=== PATIENT | female | born 1960 | race American Indian/Alaskan Native ===

== ENCOUNTER 2022-01-03 09:29 | Outpatient (CLI) | payer OTHER ==
--- NOTE | 2022-01-03 10:45 | XRay Report ---
Bilateral shoulders INDICATION: Fall FINDINGS: Advanced degenerative change in right shoulder. Severe joint space narrowing with prominent osteophytes. There is some subchondral sclerosis with significant loss of cartilage in the glenoid a nd humeral head. AC degenerative change hypertrophy. Moderate degenerative change in left uncovertebr al joint and left AC joint. No dislocation is seen. Bilateral knees INDICATION: Fall FINDINGS: There is advanced tricompartmental degenerative change within the right knee. Significant j oint space narrowing with prominent osteophytes throughout. Severe tricompartmental degenerative plasencia ge in the left knee as well with significant joint space narrowing and osteophytes throughout. Small right effusion. No displaced fracture. Signer Name: Deandre Womack MD Signed: 01/03/2022 10:41 AM Workstation Name: [employer]
== END 2022-01-03 09:30 | disposition home or self-care (01) ==
LOC: XRAY 09:29
PROVIDERS: ATTEND Internal Medicine
DX: M17.0 Bilateral primary osteoarthritis of knee (principal); M19.011 Primary osteoarthritis, right shoulder; M25.712 Osteophyte, left shoulder; M25.711 Osteophyte, right shoulder; M25.762 Osteophyte, left knee; M25.761 Osteophyte, right knee